=== PATIENT | male | born 1995 | race Caucasian/White ===

== ENCOUNTER → 2018-07-26 | Outpatient (CLI) | payer OTHER ==
[~2018-07-26] MED LIST: MEDROLDOSEPACK PO; MOBIC15 MG PO
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
== END ==
LOC: M.PC 03:48
DX: M54.5 Low back pain (principal); R10.30 Lower abdominal pain, unspecified

== ENCOUNTER 2019-12-05 13:10 | Emergency (ER) | payer OTHER ==
[~2019-12-05] VITALS: Ht 175.3 cm; Wt 80.7 kg
[2019-12-05] MEDS ORDERED: NOHOMEMEDICATIONS (13:28)
[2019-12-05] MEDS ORDERED: IBUPROFEN 800800 M1 PO (14:23)
[2019-12-05] MEDS ORDERED: FLEXERIL PO (14:23)
[2019-12-05 14:31] VITALS: BP 132/70
== END 2019-12-05 14:32 | disposition home or self-care (01) ==
LOC: M.ERS 13:10
DX: M54.2 Cervicalgia (principal)